=== PATIENT | male | born 1965 | race Caucasian/White ===

== ENCOUNTER → 2016-10-16 | Outpatient (CLI) | payer BC ==
--- NOTE | 2016-10-16 17:35 | KCIC ---
PROCEDURE MRI of the lumbar spine without contrast 10/16/2016 HISTORY Low back pain which radiates down the right leg for the last 6-8 weeks. TECHNIQUE Unenhanced T1 weighted and T2 weighted sagittal and axial and inversion recovery sagittal images of the lumbar spine were obtained. FINDINGS Minimal S-shaped curvature of the thoracolumbar spine is seen. Degenerative signal changes are seen involving the L2-3, L3-4, L4-5 and L5-S1 discs. Degenerative signal changes are seen within the marrow surrounding these discs. Loss of height of the L5-S1 disc is noted. The conus medullaris is normal in morphology, position, and signal characteristics. On the sagittal images a large anterior disc herniation is seen centrally at L5-S1. This measures 1.5 centimeters in AP dimensions. At the L1-2 disc space there is a mild generalized disc bulge. This is eccentric to the left. Superimposed on this disc bulge is a left paracentral focal disc protrusion. This measures 2 millimeters in AP diameter. Degenerative changes are seen involving the facet joints bilaterally. These findings when combined result in mild left greater than right central spinal canal stenosis. No neural foraminal stenosis is seen. At the L2-3 and L3-4 disc spaces there are mild generalized disc bulges. Degenerative changes are seen involving the facet joints bilaterally. There is mild ligamentum flavum hypertrophy bilaterally. These findings when combined result in mild central spinal canal stenosis. No neural foraminal stenosis is seen. At the L4-5 disc space there is mild to moderate generalized disc bulge. This is eccentric to the right. Superimposed on this disc bulge is a right paracentral focal disc protrusion. This measures 3 millimeters in AP diameter. Degenerative changes are seen involving the facet joints bilaterally. There is mild to moderate ligamentum flavum hypertrophy. These findings when combined result in mild right greater than left central spinal canal stenosis. Mild bilateral neural foraminal stenosis is seen. The L5-S1 disc space there is a mild to moderate generalized disc bulge. This is eccentric to the right. Degenerative changes are seen involving facet joints bilaterally. There is mild to moderate ligamentum flavum hypertrophy. These findings when combined do not result in significant central spinal canal stenosis. Mild to moderate right greater than left neural foraminal stenosis is seen. A right lateral/far lateral disc osteophyte complex is noted which displaces the exiting right L5 nerve root to some degree. IMPRESSION The changes of degenerative disc disease are seen throughout the lumbar spine. These findings result in mild left greater than right central spinal canal stenosis at L1-2, mild central spinal canal stenosis at L2-3 and L3-4 and mild right greater than left central spinal canal stenosis at L4-5. Mild bilateral neural foraminal stenosis is seen at L4-5. Mild to moderate right greater than left neural foraminal stenosis is seen at L5-S1. Electronically signed by: Fabio Garcia MD (Oct 16, 2016 17:34:27)
== END | disposition home or self-care (01) ==
LOC: KCIC MRI 13:56
PROVIDERS: ATTEND Physician Assistant Surgical
DX: M54.31 Sciatica, right side (principal); M25.50 Pain in unspecified joint
CPT/HCPCS: 72148

== ENCOUNTER → 2016-11-08 | Outpatient (CLI) | payer BC ==
[~2016-11-08] MED LIST: AMLO5TAB2 PO; ATOR20TA58 PO; BENA20TA2 PO; CETI10TA16 PO; COLE1TAB2 PO; DULO30CA43 PO; GABA-586 PO; INSU300I SQ; IOHEXOL 180 MG/ML 10 ML VIAL. ONE; MELO-150 PO; METO25TA4 PO; SITA100T PO; methylPREDNISolone ACETATE 40 MG/ML VIAL. ONE; methylPREDNISolone ACETATE 80 MG/ML VIAL. ONE
--- NOTE | 2016-11-09 04:43 | PAIN ---
DATE OF SERVICE: INITIAL CONSULTATION FOR PAIN CLINIC CHIEF COMPLAINT: Low back and right lower extremity pain. HISTORY OF PRESENT ILLNESS: This is a 50-year-old male who presents with history of pain for about 3 months, increased in the low back, right lower extremity, not as a result of any specific injury or action he is aware of, but getting more and more noticeable and painful. The patient reports it is constant, sharp, stabbing, throbbing, shooting, radiating with numbness and tingling, worse with activity, intermittent in intensity, but always present, aching and cold sensation as well, worse when he is on his feet, walking or standing, better with sitting. It wakes him from sleep anywhere from 2-5 times at night every night. The patient reports lying on his right side exacerbates the pain. It wakes him up from sleep very quickly. The patient reports no bowel or bladder loss of control, does affect his ability to walk significantly though he is not using any assistive devices currently. The patient did have an MRI scan of the lumbar spine dated 10/16/2016 showing degenerative disk disease throughout the lumbar spine resulting in mild left greater than right central canal stenosis at L1-L2, mild central spinal canal stenosis at L2-L3 and L3-L4 and mild right greater than left central spinal canal stenosis at L4-L5 with mild bilateral neural foraminal stenosis seen at L4-L5 and [id number] right greater than left neural foraminal stenosis at L5-S1. The patient has been doing some exercises on his own. He is scheduled to have physical therapy by his report from his neurosurgeon who evaluated him and he wanted to pursue some more conservative measures, but the physical therapy has not started yet. The patient is taking hydrocodone which does help by about 50%. The patient reports his disability rate from 0-10, 10 being the worst, it is 7 with family and home responsibilities, 9 with recreation, occupation and life support activities, 8 with social activity and 10 with sexual behavior, 7 with self-care activities. The patient reports no loss of motor function in the lower extremities, but the right leg has much more fatigability with any type of activity, walking even more than 5 or 10 minutes and will sit, ____ relax for about 5 minutes before he can get up and go on. PAST MEDICAL HISTORY: Significant for hearing loss, diabetes insulin-dependent, history of hypertension, cigarette smoking 1 pack a day for the past 30-40 years, weight loss of 40-50 pounds over several years, arthritis. PREVIOUS SURGERY: Include cholecystectomy, left carpal tunnel repair and left shoulder surgery. CURRENT MEDICATIONS: Include duloxetine, atorvastatin, benazepril, Meloxicam, gabapentin, colestipol, cetirizine, amlodipine, metoprolol and Januvia. ALLERGIES: The patient has no known drug allergies. FAMILY HISTORY: Significant for diabetes, heart disease, high blood pressure and cancer. SOCIAL HISTORY: The patient used to smokes cigarettes about 1 pack per day for about ____ years or so. 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 PHYSICAL EXAMINATION: VITAL SIGNS: The patient's blood pressure 128/76, pulse 73, respirations 18, temperature 98.0 degrees Fahrenheit. Height is 5 feet 7 inches, weight is 156 pounds. GENERAL: The patient is awake, alert, oriented and appropriate, very pleasant demeanor. HEENT: Shows normocephalic, atraumatic. Extraocular movements are intact and symmetrical. Oral cavity, mucous membranes are moist and pink. Dentition is intact. NECK: Shows anterior throat supple without palpable lymphadenopathy noted. Swallow reflex is symmetrical. CHEST: Shows normal on inspection. Breath sounds are clear to auscultation bilaterally. HEART: Shows S1 and S2 clear. No murmurs auscultated. ABDOMEN: Soft, nontender, nondistended. No palpable organomegaly noted. No rebound or guarding demonstrated. BACK: Shows spine grossly midline. Normal appearing thoracic kyphosis and lumbar lordotic curvature. Shows no previous bruises, lesions, rashes or scars throughout the spine. Lumbar paraspinous musculature shows symmetrical on inspection with palpation shows normal muscle girth, is firm with moderate tenderness with palpation bilaterally across the low back, but is symmetrical without evidence of atrophy, hypertrophy, no radiation of pain, no trigger points, no tenderness over the spinous processes. No tenderness over the sacrum and sacroiliac regions with palpation. The patient shows good rotational motion of lumbar spine, both laterally greater than 10 degrees right and left as well as extension greater than 10 degrees, forward flexion 45 degrees without significant pain reported. Lower extremities showed deep tendon reflexes at 2+ in the patellar and tendo calcaneus tendons are 1+ and symmetrical. Motor exam is strong with 5/5 dorsiflexion, extension, quadriceps and hamstring flexion and are strong and equal bilaterally. Peripheral pulses are 1+ posterior tibial and dorsalis pedis pulses. No peripheral edema is noted. No clubbing, no cyanosis. Lower extremities are warm and dry to touch, equal in color and appearance. Straight leg raise noted to be negative for reproduction of radicular symptoms bilaterally. Gaenslen's and Basilio's maneuvers are negative for pain reproduction as well. The patient is able to stand, stand on his toes without difficulty or loss of balance, is able to walk with a slight shuffling gait, appears to favor the right lower extremity even with a few steps; however, is not using any assistive devices such as canes or walkers to ambulate. IMPRESSION: 1. A 50-year-old male with approximately 3-month history of increasing low back pain radiating to the right lower extremity in a radicular fashion as noted. 2. MRI scan as noted. 3. Arthritis. 4. Diabetes. 5. Hypertension. 6. Cigarette smoking. PLAN: Options were discussed with the patient including conservative medical management, physical therapy, interventional techniques. As he is doing exercises on his own and physical therapy is scheduled to start soon, he would like to try interventional techniques. We discussed a lumbar epidural steroid injection using description as well as anatomical models to describe the procedure. Risks were then discussed including, but not limited to bleeding, infection, possibility of epidural hematoma, subsequent neurological compromise, dural punctures, headaches, spinal cord and/or nerve damage, side effects of steroid medication and poor results regarding pain control. The patient understands and wishes to proceed. The patient will return to clinic in approximately 2 weeks for followup, was counseled on return appointment, activity level and side effects to be aware of. DIAGNOSES: Lumbar radiculopathy with lumbar spinal stenosis, lumbar degenerative disk disease. PROCEDURES: Lumbar epidural steroid injection in translaminar approach at the L5-S1 level using C-arm fluoroscopic guidance under sterile prep and drape using local anesthetic. MEDICATIONS INJECTED: Depo-Medrol 120 mg plus 10 mL preservative-free normal saline and 2 mL of Isovue for contrast. CONDITION AT DISCHARGE: Stable. The patient tolerated procedure well and no complications. YIMI PANIAGUA MD DR: PHOEBE/julio JOB#: [id number] / [id number] CARSON Sommer
== END | disposition home or self-care (01) ==
LOC: PNCL 08:55
PROVIDERS: ATTEND Anesthesiology
DX: M51.16 Intervertebral disc disorders with radiculopathy, lumbar region (principal); M19.90 Unspecified osteoarthritis, unspecified site; E11.9 Type 2 diabetes mellitus without complications; I10 Essential (primary) hypertension; F17.210 Nicotine dependence, cigarettes, uncomplicated
CPT/HCPCS: 62323; J1030; J1040

== ENCOUNTER → 2016-12-05 | Outpatient (CLI) | payer BC ==
--- NOTE | 2016-12-06 09:43 | PAIN ---
DATE OF SERVICE: 12/05/2016 PROGRESS NOTE FOR PAIN CLINIC DIAGNOSES: Lumbar radiculopathy with lumbar degenerative disk disease and lumbar spinal stenosis. HISTORY OF PRESENT ILLNESS: The patient is a 51-year-old male who returns for followup status post lumbar epidural steroid injection x 1. The patient reports doing better after the injection initially, about 50% or so, but the pain is beginning to return now in the low back and right lower extremity. The patient reports that over the past 4-5 days, it is becoming just as it was at baseline, anywhere from an 8 to a 9 on a scale of 10, but currently a 3 to a 4 on a scale of 10 today. The patient reports across the low back into the right posterior gluteus, posterior thigh, posterior lower leg, calf and into the ankle. The patient reports achy, sharp, stabbing, tingling, constant, radiating and severe. The patient reports there has been difficulty sleeping at night, 3-4 times he is up. He has to reposition to get out of bed, change positions to try and decrease the pain. The patient reports no new motor or sensory deficit, no new bowel or bladder incontinence, but significant pain as noted. PHYSICAL EXAMINATION: VITAL SIGNS: Blood pressure is /86, pulse 67, respirations 18, temperature 98.2 degrees Fahrenheit. Height is 5 feet 7 inches, weight 156 pounds. GENERAL: The patient is awake, alert, oriented and appropriate, very pleasant demeanor. HEENT: Normocephalic, atraumatic. Extraocular movements are intact and symmetrical. Oral cavity shows mucous membranes moist and pink. Dentition is intact. NECK: Shows anterior throat supple without palpable lymphadenopathy noted. Swallow reflex is symmetrical. CHEST: Normal on inspection. Breath sounds are clear to auscultation bilaterally. HEART: Shows S1, S2 clear. ABDOMEN: Soft, nontender, nondistended, no palpable organomegaly is noted. BACK: Spine grossly in the midline, normal appearing thoracic and lumbar curvatures. Lumbar paraspinous musculature is symmetrical on inspection, with palpation shows very mild tenderness with palpation, but only diffusely in the low lumbar distribution without radiation. The patient has good rotational motion both laterally as well as extension and flexion without difficulty. EXTREMITIES: The patient's lower extremities show deep tendon reflexes 2+ in the patella and 1+ tendo calcaneus tendon and are equal. Motor exam is 5/5, with dorsiflexion, extension and symmetrical bilaterally. Options were discussed with the patient. The patient's old chart was reviewed as was the current medication regimen updated. Current review of systems updated today as well. We will proceed with a second lumbar epidural steroid injection today with fluoroscopic guidance. Risks were again discussed including but not limited to bleeding, infection, possibility of epidural hematoma, subsequent neurologic compromise, dural puncture, headaches, spinal cord and/or nerve damage, side effects of steroid medication and poor results regarding pain control. The patient understands and wishes to proceed. The patient will return to clinic in approximately 2 weeks for followup, was counseled on return appointment, activity level and side effects to be aware of. DIAGNOSES: Lumbar radiculopathy with lumbar spinal stenosis and lumbar degenerative disk disease. PROCEDURE: Lumbar epidural steroid ejection, translaminar approach, at the L5-S1 level using C-arm fluoroscopic guidance under sterile prep and drape, using local anesthetic. MEDICATIONS INJECTED: 120 mg Depo Medrol plus 10 mL preservative-free normal saline and 2 mL of Isovue for contrast. TopofForm CONDITION AT DISCHARGE: Stable. The patient tolerated the procedure well, had no complications.BottomofForm YIMI PANIAGUA MD DR: PHOEBE/julio JOB#: [id number] / [id number]
== END | disposition home or self-care (01) ==
LOC: PNCL 09:00
PROVIDERS: ATTEND Anesthesiology
DX: M51.16 Intervertebral disc disorders with radiculopathy, lumbar region (principal); M48.06 Spinal stenosis, lumbar region
CPT/HCPCS: 62323; J1030; J1040

== ENCOUNTER → 2019-07-15 | Outpatient (CLI) | payer MEDICARE, OTHER ==
[~2019-07-15] MED LIST changes: +AMLO5TAB10 PO; -AMLO5TAB2 PO; -BENA20TA2 PO; +BENA20TA4 PO; -DULO30CA43 PO; +DULO30CA44 PO; -GABA-586 PO; +GABA300C18 PO; -IOHEXOL 180 MG/ML 10 ML VIAL. ONE; -MELO-150 PO; +MELO15TA23 PO; -methylPREDNISolone ACETATE 40 MG/ML VIAL. ONE; -methylPREDNISolone ACETATE 80 MG/ML VIAL. ONE
--- NOTE | 2019-07-15 12:21 | KCIC ---
EXAM: Abdomen sonogram. HISTORY: Pain. TECHNIQUE: Sonographic imaging of the abdomen was performed. COMPARISON: None. FINDINGS: The liver is upper normal in size. There is hepatic steatosis. No focal hepatic lesion is seen. The gallbladder is surgically absent. The common bile duct is normal in caliber. The kidneys and spleen are unremarkable. The pancreas, aorta and inferior vena cava are partially obscured due to bowel gas. IMPRESSION: 1. Hepatic steatosis and upper normal liver size. 2. Cholecystectomy. 3. Partially obscured midline structures due to bowel gas. Electronically signed by: Arlet Art MD (07/15/2019 12:18 PM) [id number]
== END | disposition home or self-care (01) ==
LOC: KCIC US 09:52
PROVIDERS: ATTEND Family Medicine
DX: K76.0 Fatty (change of) liver, not elsewhere classified (principal); Z90.49 Acquired absence of other specified parts of digestive tract
CPT/HCPCS: 76700

== ENCOUNTER → 2020-08-24 | Outpatient (CLI) | payer MEDICARE, OTHER ==
[~2020-08-24] MED LIST changes: +AMLO-186 PO; -AMLO5TAB10 PO; +ASPI-630 PO; +CETI10TA74 PO; +INSU100I32 SQ; +MELA10TA3 PO; +METF10007 PO; +MONT10TA49 PO; +OMEP20CA16 PO; +OXYC1TAB19 PO; +TRAZ-123 PO
--- NOTE | 2020-08-24 17:12 | KCIC ---
Examination: 2 views of the left shoulder HISTORY: History of left shoulder pain COMPARISON: None available Findings/ impression: The humerus head is within the glenoid. There is widening of the AC joint unchanged since prior exam. There is calcification identified in the rotator cuff likely calcific tendinosis/tendinitis. Recomme nd MRI for further evaluation. Electronically signed by: Zac Mckeon MD (08/24/2020 5:09 PM) [id number]
== END ==
LOC: KCIC 14:50
PROVIDERS: ATTEND Family Medicine
DX: M25.512 Pain in left shoulder (principal)
CPT/HCPCS: 73030

== ENCOUNTER → 2020-08-30 | Outpatient (CLI) | payer MEDICARE, OTHER ==
--- NOTE | 2020-08-31 08:30 | KCIC ---
EXAM: MRI Left shoulder DATE: 08/30/2020 2:50 PM COMPARISON: None INDICATION: Reason: LEFT SHOULDER PAIN / Spl. Instructions: / History: Left shoulder pain, 3 weeks. LROM. Prior surg yrs ago. TECHNIQUE: Multiplanar, multisequence MRI of the Left shoulder was performed without contrast. FINDINGS: AC joint is congruent. Type I acromion. No os acromiale. No significant subacromial-subdeltoid bursal edema. A 1.3 cm T1/T2 hypointense structure with mild associated edema is seen within the infraspinatus tend on distally likely calcific tendinosis/tendinitis. Mild increased signal and thickening of the supras pinatus and infraspinatus tendons consistent with tendinosis. No discrete rotator cuff tear is identi fied. Mild increased signal within the teres minor. No quadrilateral space mass. Otherwise rotator cu ff muscle signal and bulk is normal without fatty atrophy. Mild increased signal and thickening of the intra-articular long head biceps tendon likely tendinosis . Otherwise long head biceps tendon is intact. No discrete labral tear is identified. T1 marrow signal is preserved. No fracture or osteonecrosis. Articular cartilage is preserved. IMPRESSION: 1. T1/T2 hypointense structure within the distal infraspinatus tendon may be seen with calcific tend initis. Consider ultrasound-guided barbotage if clinically indicated 2. Supraspinatus, infraspinatus and intra-articular long head biceps tendinosis 3. Mild increased signal within the teres minor without fatty atrophy. No definite quadrilateral spa ce mass is identified. Electronically signed by: Davis Ruff MD (08/31/2020 8:27 AM) [id number] [facility]
== END ==
LOC: KCIC MRI 14:32
PROVIDERS: ATTEND Family Medicine
DX: M75.102 Unspecified rotator cuff tear or rupture of left shoulder, not specified as traumatic (principal); M25.512 Pain in left shoulder
CPT/HCPCS: 73221

== ENCOUNTER → 2020-10-07 | Outpatient (CLI) | payer MEDICARE, OTHER | LOC: LAB 09:54 | PROVIDERS: ATTEND Orthopaedic Surgery | DX: Z01.812 Encounter for preprocedural laboratory examination (principal); M75.32 Calcific tendinitis of left shoulder; Z20.822 Contact with and (suspected) exposure to COVID-19 | CPT/HCPCS: U0003 ==

== ENCOUNTER 2020-10-11 09:24 | Day surgery (SDC) | payer MEDICARE, OTHER ==
[~2020-10-11] VITALS: Ht 170.2 cm; Wt 70.8 kg
[~2020-10-11 09:24] MED LIST changes: +HYDROmorphone 2 MG/ML VIAL IVP PRN; +IV RINGERS,LACTATED 1000ML 1,000 ML IV SCH; +MORPHINE SULFATE 2 MG/ML VIAL. IVP PRN; -OXYC1TAB19 PO; +PROCHLORPERAZINE 10 MG/2 ML VIAL. IVP PRN; +ceFAZolin SODIUM IV Push 1 GM VIAL. IVP PRN; +fentaNYL PF VIAL 100 MCG/2 ML VIAL IVP PRN
[2020-10-11] MEDS ORDERED: INSULIN LISPRO 100 UNIT/ML 3ML VIAL for OP,RR ONLY. SQ PRN (09:45)
[2020-10-11] MEDS ORDERED: INSULIN LISPRO 100 UNIT/ML 3ML VIAL for OP,RR ONLY. SQ ONE (10:00)
[2020-10-11] MEDS ORDERED: ROCURONIUM 50 MG/5 ML VIAL. ONE (10:03)
[2020-10-11] MEDS ORDERED: EPINEPHrine VIAL 30 MG/30 ML VIAL ONE (10:37)
[2020-10-11] MEDS ORDERED: MIDAZOLAM HCL/PF 2 MG/2 ML VIAL. ONE (10:41)
[2020-10-11] MEDS ORDERED: ROPIVacaine 0.5% PF 20 ML VIAL. ONE (10:42)
[2020-10-11] MEDS ORDERED: LIDOCAINE 1% PF 2 ML VIAL. ONE (10:48)
[2020-10-11] MEDS ORDERED: SUCCINYLCHOLINE 200 MG/10 ML VIAL. ONE (12:10)
[2020-10-11] MEDS ORDERED: ONDANSETRON PF 4 MG/2 ML VIAL. ONE (12:40)
[2020-10-11] MEDS ORDERED: PROPOFOL 10 MG/ML (20ML) VIAL. IV ONE (12:40)
[2020-10-11] MEDS ORDERED: DEXAMETHASONE SOD PHOS 4 MG/ML VIAL ONE (12:40)
[2020-10-11] MEDS ORDERED: SEVOFLURANE > 120 MINUTES. IH ONE (12:40)
[2020-10-11] MEDS ORDERED: LIDOCAINE 2% PF 5 ML VIAL. ONE (12:40)
[2020-10-11] MEDS ORDERED: GLYCOPYRROLATE 1 MG/5 ML VIAL. ONE (13:20)
[2020-10-11] MEDS ORDERED: NEOSTIGMINE METHYLSULFATE 5 MG/5 ML SYRINGE. ONE (13:20)
[2020-10-11] MEDS ORDERED: KETOROLAC 30 MG/ML VIAL. ONE (13:27)
[2020-10-11] MEDS ORDERED: oxyCODONE/APAP 7.5/325 1 TAB TABLET PO ONE (13:45)
[2020-10-11] MEDS ORDERED: OXYC1TAB19 PO (14:10)
--- NOTE | 2020-10-11 14:12 | DISCH ---
DISCHARGE INSTRUCTIONS Condition on Discharge Condition on Discharge: Stable Activity After Discharge Activity Instructions for Disc: Other, see below (Sling until arm wakes up then for comfort only, immediate increasing use of arm as tolerated symptomatically) Weight Bearing Status after Di: As tolerated Diet after Discharge Diet after Discharge: Regular Wound Incision Care Wound/Incision Care: Ice to area for comfort, Change dressing (Remove dressings in 2 days may then shower no soaking until sutures removed) Community/Resources/Services Services at Discharge: PT EVALUATE & TREAT (Immediate active and passive range of motion advancing to rotator cuff strengthening as tolerated with no restrictions) Contacting the DRGladys after DC Call your doctor for: Concerns you may have Follow-Up Follow up with: Dr. Bates or Radha 1 week ELHAM BATES MD Oct 11, 2020 14:12
--- NOTE | 2020-10-11 14:32 | PDOC4 ---
Operative Note Operative Note Date of surgery: 10/11/2020 Preoperative diagnosis: Left rotator cuff calcific tendinitis Postoperative diagnosis same with type I SLAP tear Operative procedure: Left shoulder arthroscopy debridement of superior labrum and calcific tendinitis at infraspinatus insertion on bursal side Surgeon: Paulo Poker Manager: Promise sandy assist Anesthesia: General plus interscalene block Estimated blood loss: 5 cc Complications: None Operative indications: Please see my preoperative orthopedic clinic note for detailed operative indications and note that he has severe pain unresponsive to nonoperative management with diagnosis of calcific tendinitis and we talked about the possibility of operative treatment with debridement and possible rotator cuff repair depending on the degree of involvement. And addressing any other pathological conditions. All his questions were answered he wishes to proceed with surgical evaluation and treatment and we did cover the possibility of continued pain nonhealing infection nerve or blood vessel damage medical or other anesthetic complications among others Operative text: Patient was identified procedure verified patient placed in the supine position on the operating table. After adequate amounts of general anesthesia plus a pre-existing scalene block were obtained he was placed decubitus left side up with the beanbag for positioning and all bony prominences were well-padded. The left shoulder was then prepped and draped in standard sterile fashion examined under anesthesia found a full range of motion with no instability. He was then placed in the arthroscopic arm orourke with a total of 10 pounds of traction and after timeout was performed patient procedure mally ntified and verified a standard posterior portal was established an anterior portal established using spinal needle localization and the shoulder joint was systematically examined. He was noted to have a type I SLAP tear which was debrided back to stable tissue with the arthroscopic shaver and electrocautery. Biceps anchor was intact and no evidence of bicipital fraying or subluxation noted. The joint side of the rotator cuff insertion was noted to be intact including the supraspinatus infraspinatus bare area of the humerus and the subscapularis. Capsuloligamentous structures were noted to be normal in appearance. Subacromial space was then entered and bursal tissue was debrided to allow visualization. He was noted to have bursal sided scuffing of the rotator cuff at the supraspinatus and infraspinatus insertion. Corresponding to the area of calcific tendinitis deposit was a lump of tissue at the infraspinatus insertion and it was debrided back to stable tissue without enough involvement of the infraspinatus insertion to require repair. Remainder of the rotator cuff insertion was lightly debrided and verified to be intact via probing by a spinal needle and arthroscopic probe. Joint was drained of arthroscopic fluid portals closed with nylon suture sterile dressings were applied patient was placed in a sling returned to recovery room in stable condition having tolerated procedure well ELHAM LOCKETT MD Oct 11, 2020 14:32
[2020-10-11 14:40] VITALS: BP 137/75
== END 2020-10-11 15:12 | disposition home or self-care (01) ==
LOC: SURG 09:24
PROVIDERS: ATTEND Orthopaedic Surgery
DX: M75.32 Calcific tendinitis of left shoulder (principal); S43.432A Superior glenoid labrum lesion of left shoulder, initial encounter; E11.42 Type 2 diabetes mellitus with diabetic polyneuropathy; I10 Essential (primary) hypertension; E78.00 Pure hypercholesterolemia, unspecified; K21.9 Gastro-esophageal reflux disease without esophagitis; M19.90 Unspecified osteoarthritis, unspecified site; F41.9 Anxiety disorder, unspecified; F32.9 Major depressive disorder, single episode, unspecified; Z79.82 Long term (current) use of aspirin; Z79.84 Long term (current) use of oral hypoglycemic drugs; Z79.899 Other long term (current) drug therapy; Z90.49 Acquired absence of other specified parts of digestive tract; Z98.890 Other specified postprocedural states; Z87.891 Personal history of nicotine dependence; X58.XXXA Exposure to other specified factors, initial encounter; Y93.89 Activity, other specified; Y92.89 Other specified places as the place of occurrence of the external cause; Y99.8 Other external cause status
CPT/HCPCS: 29822; 64450; 82962; A4565; A4930; J0171; J0330; J0690; J1100; J1815; J1885; J2250; J2405; J2704; J2710; J2795; J3490; A4223

== ENCOUNTER → 2020-11-15 | Outpatient (CLI) | payer MEDICARE ==
[~2020-11-15] MED LIST changes: -HYDROmorphone 2 MG/ML VIAL IVP PRN; -IV RINGERS,LACTATED 1000ML 1,000 ML IV SCH; -MORPHINE SULFATE 2 MG/ML VIAL. IVP PRN; +OXYC1TAB19 PO; -PROCHLORPERAZINE 10 MG/2 ML VIAL. IVP PRN; -ceFAZolin SODIUM IV Push 1 GM VIAL. IVP PRN; -fentaNYL PF VIAL 100 MCG/2 ML VIAL IVP PRN
--- NOTE | 2020-11-15 13:34 | KCIC ---
EXAMINATION: Magnetic resonance imaging (MRI) of the cervical spine without contrast 11/15/2020 10:00 AM HISTORY: Right arm weakness for 3 to 4 months. TECHNIQUE: Multiplanar multi-weighted MRI of the cervical spine was performed without intravenous con trast using the standard cervical spine protocol. Contrast information: None administered COMPARISON: None available. FINDINGS: There is minimal retrolisthesis of C3 on C4 measuring 2 mm. Vertebral body heights are maintained. Mo dic type I endplate degenerative changes are identified anteriorly at C6-C7. No acute fractures ident ified. Posterior fossa is normal in appearance. Vertebral artery flow voids are maintained. There is no prevertebral soft tissue swelling. No paravertebral soft tissue abnormality. Cord signal alteratio n is identified at C3-C4 and C4-C5 which could reflect myelomalacia given prior laminectomy changes f rom C3 through C6. C2-C3: There is a disc bulge with central disc protrusion. No significant facet or uncovertebral join t disease. No significant neuroforaminal or spinal canal stenosis. C3-C4: There is a central disc extrusion. Mild uncovertebral joint disease. No significant facet arth ropathy. Mild bilateral neuroforaminal stenosis. Mild to moderate spinal canal stenosis with deformit y of the cord and central T2 signal hyperintensity suggestive of myelomalacia. C4-C5: There is a posterior disc osteophyte complex with mild facet and uncovertebral joint disease. Mild bilateral neuroforaminal stenosis. Mild spinal canal stenosis without deformity of the cord. The re is T2 signal hyperintensity involving the left hemicord which favors myelomalacia. C5-C6: There is a left central disc extrusion. Mild facet arthropathy. Mild uncovertebral joint disea se. Moderate left neural foraminal stenosis. No significant spinal canal stenosis. C6-C7: There is a posterior disc osteophyte complex with central disc extrusion. Mild facet arthropat hy. Mild uncovertebral joint disease. Moderate to severe bilateral neuroforaminal stenosis. Mild spin al canal stenosis secondary to ligamentum flavum infolding. C7-T1: Disc is normal in configuration. No significant facet arthropathy. No neuroforaminal or spinal canal stenosis. IMPRESSION: There is residual mild to moderate spinal canal stenosis at C3-C4 with central disc extrusion resulti ng in mild deformity of the ventral cord. There is myelomalacia at C3-C4 and C4-C5. Differential cons ideration would include superimposed cord edema and comparison with prior imaging could be of benefit . Electronically signed by: Lata Menchaca MD (11/15/2020 1:32 PM) [id number]
== END ==
LOC: KCIC MRI 09:53
PROVIDERS: ATTEND Physician Assistant
DX: M47.812 Spondylosis without myelopathy or radiculopathy, cervical region (principal); M43.12 Spondylolisthesis, cervical region; M48.02 Spinal stenosis, cervical region; M25.78 Osteophyte, vertebrae; Z98.890 Other specified postprocedural states
CPT/HCPCS: 72141